=== PATIENT | male | born 1955 | race Caucasian/White ===

== ENCOUNTER 2024-08-02 13:36 | Emergency (ER) | payer MEDICARE ==
[~2024-08-02] VITALS: Ht 175.3 cm; Wt 91.0 kg
[2024-08-02] VITALS (8 sets, daily range): BP systolic 123–136; BP diastolic 69–89
[2024-08-02] MEDS ORDERED: IPRATROPIUM-Albuterol 0.5MG-2.5MG/3 ML NEB ONE (14:05)
[2024-08-02] MEDS ORDERED: PROMETHAZINE DM1 SOL PO ×2 (15:04→15:52)
[2024-08-02] MEDS ORDERED: VENTOLIN HFA108 MCG IN ×2 (15:04→15:52)
[2024-08-02] MEDS ORDERED: LEVOFLOXACIN750 MG PO ×2 (15:04→15:52)
== END 2024-08-02 15:25 | disposition home or self-care (01) ==
LOC: ED 13:36
DX: J18.9 Pneumonia, unspecified organism (principal); Z20.822 Contact with and (suspected) exposure to COVID-19; Z28.310 Unvaccinated for COVID-19